=== PATIENT | female | born 1975 | race Caucasian/White ===

== ENCOUNTER 2022-02-01 13:29 | Outpatient (CLI) | payer BC, SELFPAY ==
--- NOTE | 2022-02-01 13:40 | CRLHL7_ITS ---
For Patients: As a result of the Century Cures Act, medical imaging exams and procedure reports are released immediately into your electronic medical record. You may view this report before your referring provider. If you have questions, please contact your health care provider. BILATERAL SCREENING MAMMOGRAM WITH COMPUTER-AIDED DETECTION TECHNIQUE: CC and MLO views were obtained. These mammographic images have been obtained using full-field digital technique. These mammographic images were interpreted with the benefit of computer-aided detection. COMPARISON FILM: 10/11/18, Left diagnostic 01/21/14. FINDINGS: There are scattered areas of fibroglandular density. IMPRESSION: There is no radiographic evidence for malignancy. ASSESSMENT: BI-RADS Category 1: Negative RECOMMENDATION: Routine screening mammogram in 1 year. A lay language report of this examination will be provided to the patient. CHETAN COLINDRES M.D. Diagnostic Radiologist [email or web address] Transcribed: 2:[address]/Dictated by: Chetan Colindres MD @ 02/02/2022 9:13:00 AM (Electronically Signed)
== END 2022-02-01 13:30 | disposition home or self-care (01) ==
PROVIDERS: PCP Family Medicine; Visit Provider Family Medicine
DX: Z12.31 Encounter for screening mammogram for malignant neoplasm of breast (principal)
CPT/HCPCS: 77067

== ENCOUNTER 2022-11-05 14:31 | Emergency (ER) | payer BC, SELFPAY ==
[2022-11-05 14:36] VITALS: BP 128/75; PULSE 91; RESP 18; TEMP 36.3; O2SAT 98; BMI 24.7
--- NOTE | 2022-11-05 14:49 | CRLHL7_ITS ---
For Patients: As a result of the Century Cures Act, medical imaging exams and procedure reports are released immediately into your electronic medical record. You may view this report before your referring provider. If you have questions, please contact your health care provider. INDICATION: Injury. TECHNIQUE: Two views right ankle. IMPRESSION : Complex minimally impacted fracture of the distal fibular diaphysis into the metaphysis without obvious displaced intra-articular extension of the ankle. Some hairline nondisplaced fracturing probably extends into the lateral malleolus. Overlying soft tissue swelling. No tibial or talar fracture. No joint effusion. Anatomic alignment of the ankle. Small os calcis spur. Dictated by Juno Patel MD @ 11/05/2022 3:30:49 PM (Electronically Signed)
--- NOTE | 2022-11-05 14:49 | ED.LOWEXIN ---
HPI - Extremity Injury (Lower) General Time Seen by Provider: 14:49 Date Seen: 11/05/22 Chief Complaint: Extremity Pain/Injury, Lower Stated Complaint: Right ankle pain, thinks it's broken Time Seen by Provider: 11/05/22 14:45 Source: patient and RN notes reviewed Mode of arrival: ambulatory Limitations: no limitations History of Present Illness HPI Narrative: This 47-year-old female is coming in with right ankle pain swelling. She injured it last night, tripped. She had a friend that looked at her foot and ankle today, thought maybe she had a fracture. She states the toes and foot of the involved extremity feel little numb and tingly but admits she has been using ice and elevating. She states nothing else was injured, has no other complaints other than pain in the ankle. The pain does radiate up it to the leg some. MD complaint: ankle injury Related Data Home Medications Medication Instructions Recorded Confirmed levetiracetam 750 mg ea PO 02/23/22 02/23/22 tablet,extended release 24 hr Allergies Allergy/AdvReac Type Severity Reaction Status Date / Time acetaminophen Allergy Verified 02/23/22 13:38 codeine Allergy Rash Verified 02/23/22 13:38 hydrocodone Allergy Rash Verified 02/23/22 13:38 Review of Systems Narrative: As per HPI. PFSH PFS Medical History Olecranon bursitis of left elbow ?M70.22 - Olecranon bursitis, left elbow (ICD-10) Epilepsy ?G40.909 - Epilepsy, unspecified, not intractable, without status epilepticus (ICD-10) Surgical History History of medial meniscus repair of left knee ?Z98.890 - Other specified postprocedural states (ICD-10) History of repair of anterior cruciate ligament of left knee ?Z98.890 - Other specified postprocedural states (ICD-10) History of endometrial ablation (~05/2015) ?Z98.890 - Other specified postprocedural states (ICD-10) History of tubal ligation (09/07/12) ?Z98.51 - Tubal ligation status (ICD-10) Social History Smoking Status: Former smoker What tobacco products do you use: cigarettes Smoking quit date/years: <= 15 years ago Do you use any of these nicotine containing products: None Second hand tobacco smoke exposure: No Exam Const: Vital Signs, click to edit/add: Vital Signs - 24 hr 11/05/22 14:36 Temperature 97.4 F L Pulse Rate [Pulse Oximeter] 91 Respiratory Rate 18 Blood Pressure [Ri ght Upper Arm] 128/75 Pulse Oximetry 98 Oxygen Delivery Me thod Room Air Documenting provider has reviewed patient's vital signs: yes Other: 47-year-old female that is alert interactive no apparent distress, seen lying on the bed in exam room 2. She has obvious swelling about her right ankle. Distal foot has been normal coloration and good cap refill. Toes are warm. She states the toes and dorsum of foot feel tingly at this time but does note she has been icing. No pain on palpation around the knee or the proximal tibia/fibula. Ankle is swollen enough, developing some ecchymosis that do not feel any range of motion is indicated. We need imaging to rule out fracture. Course Course Hospital Course: Obtain x-rays of her right ankle, expect we may see some underlying fracture based on her clinical exam. She will continue to ice until we get our x-rays. Reevaluation(s) Time of Reevaluation #1: 15:20 Reevaluation #1: Have shown patient picture of her ankle with the fibula fracture. Did review with her concern for possible increased widening of the mortise. We have paged Orthopedics, will review with them and make a formalized plan. Time of Reevaluation #2: 15:33 Reevaluation #2: Reviewed plan with her, her crutches are not fitting her, they are someone else's. She feels they are hitting in the axilla, thus, we will get her appropriate sized crutches. Consultations Consultation #1: Boom SHERWOOD from Orthopedics was consulted over the phone. Reviewed with him my concerns, he did not have the images to look at at the time. He agrees with orthopedic boot, nonweightbearing and follow up in clinic next week to determine stability. Time: 15:25 Vital Signs Vital signs: Initial Vital Signs Temperature 97.4 F L 11/05/22 14:36 Temperature Source Temporal Artery Scan 11/05/22 14:36 Pulse Rate 91 11/05/22 14:36 Respiratory Rate 18 11/05/22 14:36 Blood Pressure 128/75 11/05/22 14:36 Blood Pressure Mean 92 11/05/22 14:36 Blood Pressure Position Supine 11/05/22 14:36 Pulse Oximetry 98 11/05/22 14:36 Oxygen Delivery Method Room Air 11/05/22 14:36 Vital Signs Temperature 97.4 F L 11/05/22 14:36 Pulse Rate 91 11/05/22 14:36 Respiratory Rate 18 11/05/22 14:36 Blood Pressure 128/75 11/05/22 14:36 Pulse Oximetry 98 11/05/22 14:36 Oxygen Delivery Method Room Air 11/05/22 14:36 Temperature 97.4 F L 11/05/22 14:36 Pulse Rate 91 11/05/22 14:36 Respiratory Rate 18 11/05/22 14:36 Blood Pressure 128/75 11/05/22 14:36 Pulse Oximetry 98 11/05/22 14:36 Oxygen Delivery Method Room Air 11/05/22 14:36 MDM - Extremity Injury (Lower) Imaging Data XR ankle right: My impression: Comminuted distal fibula fracture, possible disruption of the ankle mortise. Await Radiology over-read. Critical Care Time Critical Care Time Critical Care Time: No Discharge Plan Discharge Clinical Impression: Fracture of distal end of fibula Patient Disposition: Home, Self-Care Condition: Stable Instructions: Ankle Fracture (ED) Additional Instructions: Need to keep the boot on for immobilization, use crutches for nonweightbearing on this leg. Ice, elevate to decrease pain and swelling. Can use Tylenol and ibuprofen per bottle directions as needed for pain. Need to call the orthopedic office Monday morning at [phone] to get scheduled for follow-up visit. They will re-evaluate and decide if this is a stable fracture or not, decide if possible surgery may be indicated or not. Thus, it is important that you not bear weight on this leg until you have been further instructed by Orthopedics. Activity Level: No Weight Bearing Prescriptions: No Action levetiracetam 750 mg tablet extended release 24 hr PO Patient Comments: TAKE 1 TABLET BY MOUTH DAILY Follow Up/Referrals: Chetan Richardson MD [Primary Care Provider] - Stand Alone Forms: [facility] Info Instructions
== END 2022-11-05 16:01 | disposition home or self-care (01) ==
PROVIDERS: Emergency Provider Family Medicine; PCP Family Medicine
DX: S82.831A Other fracture of upper and lower end of right fibula, initial encounter for closed fracture (principal)
CPT/HCPCS: 29505; 73610; 99283

== ENCOUNTER 2022-11-07 13:45 | Outpatient (CLI) | payer BC, SELFPAY | END 2022-11-07 13:46 | disposition home or self-care (01) | PROVIDERS: PCP Family Medicine; Visit Provider Family Medicine | DX: Z01.818 Encounter for other preprocedural examination (principal) | CPT/HCPCS: 80048; 80177; 84460; 85025 ==

== ENCOUNTER 2022-11-08 06:51 | Day surgery (SDC) | payer BC, SELFPAY ==
[2022-11-08] VITALS (15 sets, daily range): BP systolic 93–127; BP diastolic 38–100; PULSE 55–77; RESP 16; TEMP 36.1–36.9; O2SAT 97–100; BMI 25.7
[2022-11-08] MEDS: LACTATED RINGERS 1000 ML 1,000 ML 100 ML IV ×2 (06:55→12:13)
[2022-11-08 07:29] LABS: Ur HCG Qualitative* Negative (Negative)
--- NOTE | 2022-11-08 08:16 | W.PM.NB ---
Nerve Block Nerve Block Time Seen by Provider: 10:03 Date Seen: 11/08/22 Type of block requested by surgeon for post-operative analgesia: popliteal Side: right Time out performed: Yes Verification of patient name: Yes Verification of date of : Yes Site marking: site marked Name of person performing procedure: Konrad Continuous monitoring Was continuous monitoring of O2 sat, B/P, registered nurse cardiac, recorded every 15 minutes?: Yes Procedure Checklist: sterile prep, needles and gloves Ultrasound guided. Images saved: Yes Medications given in 5ml increments after negative aspiration: Ropivicaine %: 0.5 mL: 20 Needle gauge: 22 Patient tolerated procedure well: Yes Additional comments: Needle noted adjacent to nerve Block Charges Block Charge (with Pro Fee): Sciatic Nerve Use of Ultrasound Machine for Block: Yes- US Guidance/pain block
--- NOTE | 2022-11-08 08:16 | W.PM.NB ---
Nerve Block Nerve Block Time Seen by Provider: 10:03 Date Seen: 11/08/22 Type of block requested by surgeon for post-operative analgesia: adductor canal Side: right Time out performed: Yes Verification of patient name: Yes Verification of date of : Yes Site marking: site marked Name of person performing procedure: Konrad Continuous monitoring Was continuous monitoring of O2 sat, B/P, cardiac rehabilitation specialist, recorded every 15 minutes?: Yes Procedure Checklist: sterile prep, needles and gloves Ultrasound guided. Images saved: Yes Medications given in 5ml increments after negative aspiration: Ropivicaine %: 0.5 mL: 20 Needle gauge: 20 Decadron (mg): 10 Precedex (mcg): 25 Patient tolerated procedure well: Yes Additional comments: Needle noted adjacent to nerve Block Charges Block Charge (with Pro Fee): Femoral Nerve Use of Ultrasound Machine for Block: Yes- US Guidance/pain block
--- NOTE | 2022-11-08 08:16 | W.ANESCHARGE ---
Anesthesia Charges Start Date/Time Anesthesia Start Date: 11/08/22 Anesthesia Start Time: 10:44 Stop Date/Time Anesthesia Stop Date: 11/08/22 Anesthesia Stop Time: 12:22
[2022-11-08] MEDS: fentaNYL 100 MCG/2 ML inj IVP (10:00)
[2022-11-08] MEDS: MIDAZOLAM HCL 1 MG/ML inj IVP (10:00)
--- NOTE | 2022-11-08 10:07 | SUR.PREOP ---
TIME?OUT:?0955 PT/RN/MDA?VERIFICATION?OF?SURGICAL?SITE,?PROCEDURE,?AND?CONSENT OBTAINED?PRIOR?TO?INVASIVE?PROCEDURE.
[2022-11-08] MEDS: CEFAZOLIN 2 GM INJ IVP (10:59)
--- NOTE | 2022-11-08 10:59 | W.ANESCHARGE ---
Anesthesia Charges Start Date/Time Anesthesia Start Date: 11/08/22 Anesthesia Start Time: 10:44 Stop Date/Time Anesthesia Stop Date: 11/08/22 Anesthesia Stop Time: 12:22
--- NOTE | 2022-11-08 11:00 | CRLHL7_ITS ---
For Patients: As a result of the Cures Act, medical imaging exams and procedure reports are released immediately into your electronic medical record. You may view this report before your referring provider. If you have questions, please contact your health care provider. Indication: ORIF Right Ankle Technique: Three fluoroscopic images of the right ankle. Fluoroscopic time 61.0 seconds. IMPRESSION: Fluoroscopic guidance for open reduction internal fixation of the distal fibular fracture. Syndesmotic screw also placed. Dictated by Chetan Hatch MD @ 11/08/2022 12:26:17 PM (Electronically Signed)
--- NOTE | 2022-11-08 12:08 | PM.ORPRC ---
Procedure Note Date of procedure: 11/08/22 Procedure: PREOPERATIVE DIAGNOSIS: Right ankle Alas B fracture POSTOPERATIVE DIAGNOSIS: Right ankle Alas B fracture NAME OF OPERATION: ORIF SURGEON: Rolando Ortega MD CELL CHANGER: ROLF Cadena ANESTHESIA: Spinal plus popliteal block ESTIMATED BLOOD LOSS: 0 mL COMPLICATIONS: None SPECIMENS: None DRAINS: None PREOPERATIVE ANTIBIOTICS: Ancef 1 gram INDICATIONS: The patient is a 47-year-old who sustained a right ankle fracture. ORIF was recommended. The risks, benefits and expected outcomes were discussed in detail. These included but were not limited to: Infection, bleeding, injury to blood vessel or nerve, venous thromboembolism. All questions were answered to their satisfaction. Use of an curriculum assistant principal was necessary throughout the case for patient positioning and safety, soft tissue retraction and closure. PROCEDURE: A popliteal block was placed by anesthesia. Spinal anesthesia was administered. The lower extremity was prepped and draped in the usual sterile fashion. A guide pin was placed in the center of the distal fragment of the fibula, percutaneously. Its placement was confirmed with the image intensifier in multiple views. A stab incision was made around the guide pin. The opening reamer was used. The 3.2 mm Reamer was Used in the proximal fragment. We placed the Arthrex 3.0 mm x 180 mm intramedullary nail. The talons were deployed. We placed 2 screws in the distal fragment. A 3.5 mm x 55 mm syndesmotic screw was placed to maintain length of the fibula. The edge cutter was removed, the end cap was placed. This provides an anatomic reduction of the fibula with excellent fixation. Implants were imaged in the AP, mortise and lateral views and were felt to be well placed with an excellent reduction. The talus is nicely reduced under the tibial plafond. The wounds were irrigated with normal saline. The curriculum assistant principal closed the skin with a 3-0 Vicryl in a subcuticular fashion. Glue was used to seal the skin. The curriculum assistant principal placed a dry dressing and short leg Shemar Richards splint. Sponge and needle counts were correct x 2. The patient tolerated the procedure well. There were no apparent complications. They were carefully transferred to the hospital bed and taken to the postanesthesia care unit in satisfactory condition. PLAN: The patient will be discharged to home. They will remain strict nonweightbearing on the lower extremity. They will continue to work on ice and elevation. They will follow up in the office in 2 weeks for a wound check and three views of the ankle out of the splint, prior to being seen, in preparation for a CAM walker.
== END 2022-11-08 14:20 | disposition home or self-care (01) ==
PROVIDERS: PCP Family Medicine; Visit Provider Orthopaedic Surgery
PROC: (CPT 27792; principal; 2022-11-08 11:00)
DX: S82.891A Other fracture of right lower leg, initial encounter for closed fracture (principal); G89.18 Other acute postprocedural pain
CPT/HCPCS: 27792; 01480; 64445; 64447; 73610; 76000; 76942; 81025; C1713; J0690; J1100; J2250; J2405; J2704; J2795; J3010; J7120

== ENCOUNTER 2023-01-20 16:15 | Outpatient (RCR) | payer BC, SELFPAY | END 2023-03-21 16:03 | disposition home or self-care (01) | PROVIDERS: PCP Family Medicine; Visit Provider Orthopaedic Surgery | DX: Z98.890 Other specified postprocedural states (principal); Z87.81 Personal history of (healed) traumatic fracture; M25.571 Pain in right ankle and joints of right foot; M25.671 Stiffness of right ankle, not elsewhere classified; Z51.89 Encounter for other specified aftercare | CPT/HCPCS: 97016; 97110; 97140; 97161 ==

== ENCOUNTER 2023-02-16 06:43 | Day surgery (SDC) | payer BC, SELFPAY ==
[2023-02-16] MEDS: LACTATED RINGERS 1000 ML 1,000 ML 100 ML IV (06:45)
[2023-02-16 06:58] VITALS: BMI 25.7
[2023-02-16 07:27] VITALS: BP 120/81; PULSE 78; RESP 16; TEMP 36.2; O2SAT 97
[2023-02-16] MEDS: SODIUM CHLORIDE 0.9 % (FLUSH) 10 ML SYRINGE IVF (07:29)
--- NOTE | 2023-02-16 08:17 | CRLHL7_ITS ---
For Patients: As a result of the Cures Act, medical imaging exams and procedure reports are released immediately into your electronic medical record. You may view this report before your referring provider. If you have questions, please contact your health care provider. Indication: SCREW REMOVAL Technique: Four fluoroscopic images of the right ankle. Fluoroscopic time 9.6 seconds. IMPRESSION: Fluoroscopic guidance for syndesmotic screw removal. Dictated by Chetan Hatch MD @ 02/16/2023 9:58:38 AM (Electronically Signed)
[2023-02-16] MEDS: CEFAZOLIN 2 GM INJ IVP (08:29)
--- NOTE | 2023-02-16 08:47 | PM.ORPRC ---
Procedure Note Date of procedure: 02/16/23 Procedure: PREOPERATIVE DIAGNOSIS: Right ankle fracture ORIF with retained hardware POSTOPERATIVE DIAGNOSIS: Right ankle fracture ORIF with retained hardware SURGEON: Rolando Ortega MD WRAPPER OPERATOR: Noemi Tillman PA-C NAME OF OPERATION: Hardware removal deep ANESTHESIA: Local ESTIMATED BLOOD LOSS: 0 mL COMPLICATIONS: None SPECIMENS: None DRAINS: None PREOPERATIVE ANTIBIOTICS: Ancef 2 gram INDICATIONS: The patient is a 47-year-old who sustained an ankle fracture. ORIF was completed previously. They present today for elective syndesmotic screw removal. The risks, benefits and expected outcomes were discussed in detail. These included but were not limited to: Infection, bleeding, injury to blood vessel or nerve, venous thromboembolism. All questions were answered to their satisfaction. Use of an head start assistant teacher was necessary throughout the case for patient positioning and safety, soft tissue retraction and closure. PROCEDURE: The patient was placed supine on the operating room table. IV sedation was administered. The lower extremity was prepped and draped in the usual sterile fashion. Local anesthesia was injected at the syndesmotic screw head. The image intensifier was used to confirm location of the syndesmotic screws. We utilized our previously placed incision and opened it longitudinally. Subcutaneous dissection was sharply taken to the screw head which was fully exposed. The screw was removed intact, without complication. The image intensifier was used to obtain an AP, mortise and lateral view of the ankle, showing the screw has been removed. Abduction stress shows no widening of the syndesmosis The wound was irrigated with normal saline. The head start assistant teacher closed soft tissue with a 3-0 Vicryl deep and a 3-0 Monocryl in the skin in a subcuticular fashion. The head start assistant teacher placed a soft dressing. Sponge and needle counts were correct x 2. The patient tolerated the procedure well. There were no apparent complications. They were carefully transferred to the hospital bed and taken to the postanesthesia care unit in satisfactory condition. PLAN: The patient will be discharged to home. They may weightbear as tolerates. Ice, elevation and Tylenol will be used as needed for pain. They will follow up in the office in 2 weeks for a wound check.
[2023-02-16 09:02] VITALS: BP 102/77; PULSE 72; RESP 16; TEMP 36.3; O2SAT 98
--- NOTE | 2023-02-16 09:03 | W.ANESCHARGE ---
Anesthesia Charges Start Date/Time Anesthesia Start Date: 02/16/23 Anesthesia Start Time: 08:10 Stop Date/Time Anesthesia Stop Date: 02/16/23 Anesthesia Stop Time: 08:59
[2023-02-16 09:15] VITALS: BP 113/70; PULSE 61; RESP 16; O2SAT 99
[2023-02-16 09:25] VITALS: BP 110/85; PULSE 72; RESP 16; O2SAT 98
== END 2023-02-16 09:31 | disposition home or self-care (01) ==
PROVIDERS: PCP Family Medicine; Visit Provider Orthopaedic Surgery
PROC: (CPT 20680; principal; 2023-02-16 08:00)
DX: Z47.2 Encounter for removal of internal fixation device (principal)
CPT/HCPCS: 20680; 01480; 73610; 76000; J0690; J2405; J2704; J3010; J7120

== ENCOUNTER 2023-08-20 14:39 | Outpatient (CLI) | payer BC, SELFPAY ==
--- OUTSIDE RECORDS SUMMARY | 2023-08-24 06:12 | XMS_ITS | Clinical Summary ---
Author Name Unknown Organization [employer] [facility] Address [place], [place] [address] Care Team Providers Care Saddle Lining Stitcher Name Role Phone [facility] Primary Care Provider Unavail able Allergies Active [...] Comments Blood Pressure 112/68 04/16/2015 11:40 AM COMMAND AND CONTROL OFFICER Pulse 82 04/16/2015 11:40 AM COMMAND AND CONTROL OFFICER Temperature 36.9 ??C (98.4 ??F) 04/16/2015 11:[address] Respiratory Rate 12 08/16/2001 12:00 AM CDT Oxygen Saturation 96% 06/01/2013 1:58 PM COMMAND AND CONTROL OFFICER Inhaled Oxygen Concentration - - Weight 77 kg (169 lb 12.8 oz) 04/16/2015 11:40 A M COMMAND AND CONTROL OFFICER Height 171 cm (5' 7.32) 06/01/2013 1:58 PM COMMAND AND CONTROL OFFICER Body Mass Index 26.34 06/01/2013 1:58 PM COMMAND AND CONTROL OFFICER Plan of Treatment Health Maintenance Due Date [...] Procedure Name Priority Date/Time Associated Diagnosis Comments CONVALESCENT SITTER THIN PREP PAP SCREEN IMAGED Routine 10/29/2018 12:00 PM CDT CHOLESTEROL,TOTAL Routine 06/15/2001 8:5 0 AM COMMAND AND CONTROL OFFICER from Last 3 Months or Most Recently Relevant to Health Maintenance Results * CONVALESCENT SITTER THIN PREP PAP SCREEN IMAGED (10/29/2018 12:00 PM CDT) Case Report Gynecologic Cytology Report ? Case: [id number] ? Authorizing Provider: ??Blaire Mesa ??Collected: ? 10/29/2018 1200 ? M, MD ? Ordering Location: ? [facility] ?Received: ?2018 1405 ? First Screen: ?Laureano, Mariana ? Rescreen: ?Jenna Mendez ? Specimen: ?CONVALESCENT SITTER ThinPrep Vial Screening, Cervical/Vaginal ? 11/12/2018 11:[address] [facility] LABORATORY INTERPRETATION/ RESULT NEGATIVE FOR INTRAEPITHELIAL LESION OR MALIGNANCY (NIL) (none) 11/12/2018 11:58 AM [facility]-C ENTRAL LABORATORY NISM(S) Shift in montse suggestive of bacterial vaginosis 11/12/2018 11:58 AM [facility]-C ENTRAL LABORATORY SPECIMEN ADEQUACY Satisfactory for evaluation Endocervical component present 11/12/2018 11:58 AM CDT [facility] HPV REQUEST HPV and PAP 11/12/2018 11:58 AM CDT [facility] Last Pap Date 02/20/2012 11/12/2018 11:58 AM CDT [facility] Last Pap Result NIL 9 11:58 AM CDT [facility] Comment:-HPV Menstrual Status Abnormal bleeding 11/12/2018 11:58 AM CDT [facility] Automated Review Successful 11/12/2018 11:58 AM CDT [facility] Comment:Specimen processed s uccessfully by automated hospital medical assistant device, ThinPrep Imaging System, [employer] ANCILLARY TESTING CONVALESCENT SITTER HPV Ordered, Please see separate report 11/12/2018 11:58 AM CDT [facility] Note The pap test is a [...] lesions. Cytology is screened and interpreted at [facility] - [address], [place] [address] and [facility] - [address]; [place] [address] and [facility] - [address]; [place] [address] and [facility] [address]; [place] [address] 11/12/2018 11:58 AM CDT [facility] Other (Cervical/Vagina l) 10/29/2018 12:00 PM CDT 2018 2:05 PM CDT Blaire Mesa MD PATHOLOGY/ CYTOLOGY [facility] [address] [place] [address], [place] * (ABNORMAL) CHOLESTEROL,TOTAL (06/15/2001 8:50 AM COMMAND AND CONTROL OFFICER) CHOLESTEROL,TOT AL 205(A) 110 - 199 mg/dL 06/15/2001 8:50 AM COMMAND AND CONTROL OFFICER Narrative 09/25/2003 1:32 PM CDT Ordered by an unspecified provider. Other Clinical Staff CHEMISTRY from Last 3 Months or Most Recently Relevant to Health Maintenance Care Teams Saddle Lining Stitcher Relationship Specialty Start Date End Date Delroy San PCP - General 02/10/16
== END 2023-08-20 14:40 | disposition home or self-care (01) ==
LOC: AMB 08-24 06:10
PROVIDERS: PCP Family Medicine; Visit Provider Family Medicine
DX: R56.9 Unspecified convulsions (principal)
CPT/HCPCS: A0425; A0427

== ENCOUNTER 2023-08-20 15:23 | Emergency (ER) | payer BC, SELFPAY ==
[2023-08-20 15:37] VITALS: BP 113/81; PULSE 93; RESP 18; TEMP 36.6; O2SAT 95; BMI 24.0
[2023-08-20 16:00] VITALS: PULSE 88; O2SAT 99
[2023-08-20 16:01] VITALS: BP 123/70; PULSE 86; O2SAT 97
--- NOTE | 2023-08-20 16:12 | ED_ITS ---
HPI - General Adult General Chief complaint: Seizure Stated complaint: seizure Time Seen by Provider: 08/20/23 15:34 Source: patient Mode of arrival: EMS Limitations: no limitations History of Present Illness HPI narrative: 47-year-old female coming in today after suffering through a seizure just prior to presenting. Patient does have a history of seizure disorder and has been on Keppra 750 mg once daily for the last approximately 15 years. She states that she has not had a seizure in that long of a time. She does state that she has these episodes where she becomes overwhelmed with nausea in the sensation of heat over her whole body. She was told that this was part of her seizure disorder in this has also been happening for the last 15 years. She does state that as of late these episodes have been coming more and more frequently. She states that this morning during yazidi she had an episode that was similar to this 3 times which is very unusual. She did have what was described as a grand mal seizure today with shaking of the entire body, loss of bladder control, and vomiting. She was postictal per EMS when they arrived. Patient is now back to her baseline. She denies any recent illness, cough, chest pain, shortness of breath, congestion, increased headaches. She denies any weight loss, changes in her appetite increased fatigue or malaise. Related Data Previous Rx's Medication Instructions Recorded levetiracetam 750 mg 750 mg PO QDAY #90 tabs 11/07/22 tablet,extended release 24 hr gabapentin 300 mg capsule 300 mg PO QHS #30 caps 12/21/22 levetiracetam 750 mg tablet 750 mg PO BID #60 tabs 08/20/23 (Keppra) Allergies Allergy/AdvReac Type Severity Reaction Status Date / Time codeine Allergy Mild Rash Verified 03/01/23 09:54 hydrocodone Allergy Mild Rash Verified 03/01/23 09:54 acetaminophen Allergy Unknown Verified 03/01/23 09:54 Review of Systems Status of ROS: Reports: 10 or more systems reviewed and unremarkable except as noted in History and below [facility] Medical History Olecranon bursitis of left elbow ?M70.22 - Olecranon bursitis, left elbow (ICD-10) Epilepsy ?G40.909 - Epilepsy, unspecified, not intractable, without status epilepticus (ICD-10) Surgical History Status post hardware removal (02/16/23) ?Z98.890 - Other specified postprocedural states (ICD-10) S/P ORIF (open reduction internal fixation) fracture (11/08/22) ?Z98.890 - Other specified postprocedural states (ICD-10) ?Z87.81 - Personal history of (healed) traumatic fracture (ICD-10) History of medial meniscus repair of left knee ?Z98.890 - Other specified postprocedural states (ICD-10) History of repair of anterior cruciate ligament of left knee ?Z98.890 - Other specified postprocedural states (ICD-10) History of endometrial ablation (~05/2015) ?Z98.890 - Other specified postprocedural states (ICD-10) History of tubal ligation (09/07/12) ?Z98.51 - Tubal ligation status (ICD-10) Family History Maternal Grandmother Breast cancer Ovarian cancer Sister Endometriosis Paternal Grandfather Prostate cancer Other Melanoma Social History Narrative: , 2 kids, supervisor [employer], smoker, social EtOH Smoking Status: Current every day smoker What tobacco products do you use: cigarettes Smoking packs per day: 0.5 Smoking cigarettes per day: 10.0 Years smoked: 10 Smoking pack-years: 5.00 Smoking quit date/years: <= 15 years ago Do you use any of these nicotine containing products: None Second hand tobacco smoke exposure: No How often do you have a drink containing alcohol: 2-3 times a week How many standard drinks containing alcohol do you have on a typical day: 1 or 2 How often do you have six or more drinks on one occasion: Weekly AUDIT-C Alcohol total score: 6 Non-prescribed substance use: denies use Caffeine: Yes Little interest or pleasure in doing things: not at all Feeling down, depressed, or hopeless: not at all Are you using contraception or practicing any form of control: No service: No Exam Narrative: Exam Narrative: Well-nourished well-developed patient in no acute distress. Alert and oriented. Answers questions appropriately. Mood and affect are appropriate. Thoughts are goal oriented and rational. No tangential or magical thinking noted. Patient speaks in full sentences without needing to catch their breath. HEENT: Normocephalic atraumatic. Pupils are equally round reactive to light. Extraocular muscles are intact. Conjunctivae are moist without any icterus noted. Moist mucous membranes. Posterior pharynx is normal. Neck is soft. Cardiovascular: Heart is regular rate and rhythm S1 and S2 are present without any murmurs. Lungs: Clear to auscultation bilaterally no wheezes rhonchi or rales are appreciated. Patient takes deep breaths without any discomfort. Abdomen: Soft and nontender nondistended with normal bowel sounds. Extremities: Bilateral lower extremities are without edema. Skin: Well perfused without any obvious rashes. Strength is 5/5 of the upper and lower extremities. Reflexes are 2+ and symmetric at the knees. Cranial nerves 3-12 are normal. There is no nystagmus either horizontally or vertically. Gait is normal. Const: Vital Signs, click to edit/add: Vital Signs - 24 hr 08/20/23 15:37 Temperature 98 F Pulse Rate [Pulse Oximeter] 93 Respiratory Rate 18 Blood Pressure [Le ft Upper Arm] 113/81 Pulse Oximetry 95 Course Course ED Course: EKG, read by me, shows normal sinus rhythm with a pulse of 74. Glucose was checked by EMS it was 142. I did consult with Dr. Bone at [facility]. He did recommend an oral dose of Keppra now and then increasing her dose to 750 mg p.o. b.i.d.. Vital Signs Vital signs: Initial Vital Signs Temperature 98 F 08/20/23 15:37 Temperature Source Temporal Artery Scan 08/20/23 15:37 Pulse Rate 93 08/20/23 15:37 Respiratory Rate 18 08/20/23 15:37 Blood Pressure 113/81 08/20/23 15:37 Blood Pressure Mean 91 08/20/23 15:37 Pulse Oximetry 95 08/20/23 15:37 Vital Signs Temperature 98 F 08/20/23 15:37 Pulse Rate 93 08/20/23 15:37 Respiratory Rate 18 08/20/23 15:37 Blood Pressure 113/81 08/20/23 15:37 Pulse Oximetry 95 08/20/23 15:37 Temperature 98 F 08/20/23 15:37 Pulse Rate 93 08/20/23 15:37 Respiratory Rate 18 08/20/23 15:37 Blood Pressure 113/81 08/20/23 15:37 Pulse Oximetry 95 08/20/23 15:37 Medical Decision Making MDM Narrative Medical decision making narrative: 47-year-old female with seizure disorder, breakthrough seizure. Plan per above. Follow-up with neuro out patient. Will check Keppra level today, patient can call and get those results and take them with her to her next neuro appointment. Medical Records Medical records reviewed: Yes I reviewed the patient's medical records ECG Data Attestation: I personally reviewed and interpreted this ECG as follows: Discharge Plan Discharge Clinical Impression: Generalized seizure Patient Disposition: Home, Self-Care Condition: Stable Additional Instructions: We will be sent home today with a new prescription for Keppra to take twice daily. These are not the extended release tablets. Okay for you to take 1 of your Keppra tablets this evening before bed and then switch to the non extended release twice daily tablets tomorrow. Recommend you follow-up with outpatient neurology at your convenience. We also did check your blood Keppra levels today: You should call for those results in a couple of days and take those results with you to your next neuro appointment. Prescriptions: New levetiracetam [Keppra] 750 mg tablet 750 mg PO BID Qty: 60 0RF No Action levetiracetam 750 mg tablet extended release 24 hr 750 mg PO QDAY Qty: 90 3RF gabapentin 300 mg capsule 300 mg PO QHS Qty: 30 2RF Follow Up/Referrals: Chetan Richardson MD [Primary Care Provider] - Stand Alone Forms: [facility] Info Instructions
--- OUTSIDE RECORDS SUMMARY | 2023-08-20 16:12 | XMS_ITS | Clinical Summary ---
Author Name Unknown Organization [employer] [facility] Address [place], [place] [address] Care Team Providers Care Experience Design Director Name Role Phone [facility] Primary Care Provider Unavail able Allergies Active Allergy Reactions Criticality Noted Date Comments Hussein Gruber,*None-Radiology Only 4 Medications Medication Sig Dispensed Refills Start Date End Date Status IBUPROFEN 600 MG ORAL TAB Take one tablet 3 times per day as directed. 30 0 08/16/2001 Active levETIRAcetam (KEPPRA) 500 mg tablet Take 1 tablet by mouth at bedtime. 0 04/16/2015 Active Active Problems Problem Noted Date Diagnosed Date Smoker 06/01/2013 KNEE SPRAIN 08/15/2001 Family History Medical History Relation Name Comments Genetic Other grandmother wit h ovarian cancer Relation Name Status Comments Other Social History Tobacco Use Types Packs/Day Years Used Date Smoking Tobacco: Every Day Cigarettes Smokeless Tobacco: Never Tobacco Cessation:Ready to Q uit: Yes; Counseling Given: Yes Alcohol Use Standard Drinks/Week Comments Not Asked 0 (1 standard drink = 0.6 oz pur e alcohol) Alcoholic Drinks/day: 0 Sex and Gender Information Value Date Recorded Sex Assigned at Not on file Gender Identity Not on file Sexual Orientation Not on file Obstetrics History Para Term AB IAB SAB Ectopic Multiple Livin g Live Births 1 Date Outcome GA Total Labor Labor/2nd/3rd Weight Sex Delivery Anes PTL Masha A1 A5 Name Cl in Last Filed Vital Signs Vital Sign Reading Time Taken Comments Blood Pressure 112/68 04/16/2015 11:40 AM PARKING RAMP ATTENDANT Pulse 82 04/16/2015 11:40 AM PARKING RAMP ATTENDANT Temperature 36.9 ??C (98.4 ??F) 04/16/2015 11:[address] Respiratory Rate 12 08/16/2001 12:00 AM CDT Oxygen Saturation 96% 06/01/2013 1:58 PM PARKING RAMP ATTENDANT Inhaled Oxygen Concentration - - Weight 77 kg (169 lb 12.8 oz) 04/16/2015 11:40 A M PARKING RAMP ATTENDANT Height 171 cm (5' 7.32) 06/01/2013 1:58 PM PARKING RAMP ATTENDANT Body Mass Index 26.34 06/01/2013 1:58 PM PARKING RAMP ATTENDANT Plan of Treatment Health Maintenance Due Date Last Done Comments Tdap 11/01/1987 Depression screening for age 12+ 1988 HIV for age 15-65 11/01/1991 BMI (ht and wt on same day) for age 18+ 1994 Hepatitis C screening for age 18-79 1994 Tetanus booster 1996 Pap test for age 21-65 10/29/2021 9, 10/29/2018, 06/15/2001, Additional history exists Colonoscopy through age 75 2021 Lipids for age 45-75 2021 06/15/2001, 06/16/19 02 Mammogram for age 45-75 2021 COVID-19 vaccine series (2022-24 season) 2022 Influenza for age 9-49 12/17/2023 Pneumococcal series for age 6-64 Aged Out No longer eligible based on patient's age to complete this topic Procedures Procedure Name Priority Date/Time Associated Diagnosis Comments AGRICULTURE SALES ACCOUNT MANAGER THIN PREP PAP SCREEN IMAGED Routine 10/29/2018 12:00 PM CDT CHOLESTEROL,TOTAL Routine 06/15/2001 8:5 0 AM PARKING RAMP ATTENDANT from Last 3 Months or Most Recently Relevant to Health Maintenance Results * AGRICULTURE SALES ACCOUNT MANAGER THIN PREP PAP SCREEN IMAGED (10/29/2018 12:00 PM CDT) Case Report Gynecologic Cytology Report ? Case: [id number] ? Authorizing Provider: ??Blaire Mesa ??Collected: ? 10/29/2018 1200 ? M, MD ? Ordering Location: ? [facility] ?Received: ?2018 1405 ? First Screen: ?Laureano, Mariana ? Rescreen: ?Jenna Mendez ? Specimen: ?AGRICULTURE SALES ACCOUNT MANAGER ThinPrep Vial Screening, Cervical/Vaginal ? 11/12/2018 11:58 AM [facility]T [facility] ENTRAL LABORATORY INTERPRETATION/ RESULT NEGATIVE FOR INTRAEPITHELIAL LESION OR MALIGNANCY (NIL) (none) 11/12/2018 11:58 AM [facility] LABORATORY-C ENTRAL LABORATORY NISM(S) Shift in montse suggestive of bacterial vaginosis 11/12/2018 11:58 AM [facility] LABORATORY-C ENTRAL LABORATORY SPECIMEN ADEQUACY Satisfactory for evaluation Endocervical component present 11/12/2018 11:58 AM CDT [facility] HPV REQUEST HPV and PAP 11/12/2018 11:58 AM CDT [facility] Last Pap Date 02/20/2012 11/12/2018 11:58 AM CDT [facility] Last Pap Result NIL 9 11:58 AM CDT [facility] Comment:-HPV Menstrual Status Abnormal bleeding 11/12/2018 11:58 AM CDT [facility] Automated Review Successful 11/12/2018 11:58 AM CDT [facility] Comment:Specimen processed s uccessfully by automated cosmetic assembler device, ThinPrep Imaging System, [employer] ANCILLARY TESTING AGRICULTURE SALES ACCOUNT MANAGER HPV Ordered, Please see separate report 11/12/2018 11:58 AM CDT [facility] Note The pap test is a screening technique, not a diagnostic procedure. ??It is used primarily to screen for squamous cancers and precursor lesions. ??Published studies have shown that it is subject to both false negative and false positive results. ??The pap test should not be used as the sole means to diagnose or exclude pre-malignant and malignant lesions. Cytology is screened and interpreted at [facility] - [address], [place] [address] and [facility] - [address]; [place] [address] and [facility] - [address]; [place] [address] and [facility] [address]; [place] [address] 11/12/2018 11:58 AM CDT [facility] Other (Cervical/Vagina l) 10/29/2018 12:00 PM CDT 2018 2:05 PM CDT Blaire Mesa MD PATHOLOGY/ CYTOLOGY [facility] [address] [place] [address], [place] * (ABNORMAL) CHOLESTEROL,TOTAL (06/15/2001 8:50 AM PARKING RAMP ATTENDANT) CHOLESTEROL,TOT AL 205(A) 110 - 199 mg/dL 06/15/2001 8:50 AM PARKING RAMP ATTENDANT Narrative 09/25/2003 1:32 PM CDT Ordered by an unspecified provider. Other Clinical Staff CHEMISTRY from Last 3 Months or Most Recently Relevant to Health Maintenance Care Teams Experience Design Director Relationship Specialty Start Date End Date Delroy San PCP - General 02/10/16
[2023-08-20 16:15] VITALS: PULSE 92; O2SAT 99
[2023-08-20] MEDS: levETIRAcetam 500 MG TABLET 1000 MG PO (16:17)
[2023-08-20 16:20] VITALS: BP 119/76; PULSE 100; RESP 18; O2SAT 97
[2023-08-20 16:30] VITALS: PULSE 96; O2SAT 98
[2023-08-22 10:42] LABS: Keppra (Levetiracetam) <2 ug/mL (10-40)
== END 2023-08-20 17:01 | disposition home or self-care (01) ==
PROVIDERS: Emergency Provider Family Medicine; PCP Family Medicine
DX: R56.9 Unspecified convulsions (principal)
CPT/HCPCS: 36415; 80177; 99284; A9270

== ENCOUNTER 2023-08-29 09:09 | Outpatient (CLI) | payer BC, SELFPAY ==
--- OUTSIDE RECORDS SUMMARY | 2023-08-29 09:17 | XMS_ITS | Clinical Summary ---
Author Name Unknown Organization [employer] [facility] Address [place], [place] [address] Care Team Providers Care Co Founder & Ceo Name Role Phone [facility] Primary Care Provider Unavail able Allergies Active [...] Comments Blood Pressure 112/68 04/16/2015 11:40 AM FULL STACK ENGINEER Pulse 82 04/16/2015 11:40 AM FULL STACK ENGINEER Temperature 36.9 ??C (98.4 ??F) 04/16/2015 11:[address] Respiratory Rate 12 08/16/2001 12:00 AM CDT Oxygen Saturation 96% 06/01/2013 1:58 PM FULL STACK ENGINEER Inhaled Oxygen Concentration - - Weight 77 kg (169 lb 12.8 oz) 04/16/2015 11:40 A M FULL STACK ENGINEER Height 171 cm (5' 7.32) 06/01/2013 1:58 PM FULL STACK ENGINEER Body Mass Index 26.34 06/01/2013 1:58 PM FULL STACK ENGINEER Plan of Treatment Health Maintenance Due Date [...] Procedure Name Priority Date/Time Associated Diagnosis Comments LITIGATION SECRETARY THIN PREP PAP SCREEN IMAGED Routine 10/29/2018 12:00 PM CDT CHOLESTEROL,TOTAL Routine 06/15/2001 8:5 0 AM FULL STACK ENGINEER from Last 3 Months or Most Recently Relevant to Health Maintenance Results * LITIGATION SECRETARY THIN PREP PAP SCREEN IMAGED (10/29/2018 12:00 PM CDT) Case Report Gynecologic Cytology Report ? Case: [id number] ? Authorizing Provider: ??Blaire Mesa ??Collected: ? 10/29/2018 1200 ? M, MD ? Ordering Location: ? [facility] ?Received: ?2018 1405 ? First Screen: ?Laureano, Mariana ? Rescreen: ?Jenna Mendez ? Specimen: ?LITIGATION SECRETARY ThinPrep Vial Screening, Cervical/Vaginal ? 11/12/2018 11:58 AM CDT [facility] INTERPRETATION/ RESULT NEGATIVE FOR INTRAEPITHELIAL LESION OR MALIGNANCY (NIL) (none) 11/12/2018 11:58 AM [facility] LABORATORY-C ENTRAL LABORATORY NISM(S) Shift in montse suggestive of bacterial vaginosis 11/12/2018 11:58 AM [facility] LABORATORY-C ENTRAL LABORATORY SPECIMEN ADEQUACY Satisfactory for evaluation Endocervical component present 11/12/2018 11:58 AM CDT [facility] HPV REQUEST HPV and PAP 11/12/2018 11:58 AM CDT [facility] Last Pap Date 02/20/2012 11/12/2018 11:58 AM CDT [facility] Last Pap Result NIL 9 11:58 AM CDT [facility] Comment:-HPV Menstrual Status Abnormal bleeding 11/12/2018 11:58 AM CDT [facility] Automated Review Successful 11/12/2018 11:58 AM CDT [facility] Comment:Specimen processed s uccessfully by automated traffic engineer device, ThinPrep Imaging System, [employer] ANCILLARY TESTING LITIGATION SECRETARY HPV Ordered, Please see separate report 11/12/2018 11:58 AM CDT [facility] Note The pap test is a [...] lesions. Cytology is screened and interpreted at [facility] - [address], [place] [address] and [facility] - [address]; [place] [address] and [facility] - [address]; [place] [address] and [facility] [address]; [place] [address] 11/12/2018 11:58 AM CDT [facility] Other (Cervical/Vagina l) 10/29/2018 12:00 PM CDT 2018 2:05 PM CDT Blaire Mesa MD PATHOLOGY/ CYTOLOGY [facility] [address] [place] [address], [place] * (ABNORMAL) CHOLESTEROL,TOTAL (06/15/2001 8:50 AM FULL STACK ENGINEER) CHOLESTEROL,TOT AL 205(A) 110 - 199 mg/dL 06/15/2001 8:50 AM FULL STACK ENGINEER Narrative 09/25/2003 1:32 PM CDT Ordered by an unspecified provider. Other Clinical Staff CHEMISTRY from Last 3 Months or Most Recently Relevant to Health Maintenance Care Teams Co Founder & Ceo Relationship Specialty Start Date End Date Delroy San PCP - General 02/10/16
== END 2023-08-29 09:10 | disposition home or self-care (01) ==
PROVIDERS: PCP Family Medicine; Visit Provider Family Medicine
DX: G40.909 Epilepsy, unspecified, not intractable, without status epilepticus (principal); Z51.81 Encounter for therapeutic drug level monitoring
CPT/HCPCS: 80048; 80177; 84460; 85025

== ENCOUNTER 2024-06-26 10:38 | Outpatient (CLI) | payer BC, SELFPAY | END 2024-06-26 10:39 | disposition home or self-care (01) | PROVIDERS: PCP Family Medicine; Visit Provider Family Medicine | DX: G40.909 Epilepsy, unspecified, not intractable, without status epilepticus (principal); Z79.899 Other long term (current) drug therapy; Z13.228 Encounter for screening for other metabolic disorders; Z13.220 Encounter for screening for lipoid disorders; Z13.0 Encounter for screening for diseases of the blood and blood-forming organs and certain disorders involving the immune mechanism | CPT/HCPCS: 80048; 80061; 80177; 84460; 85025 ==